=== PATIENT | female | born 1930 | race Hispanic/Latino ===

== ENCOUNTER 2017-08-26 08:51 | Emergency (ER) | payer MEDICARE ==
[2017-08-26 08:57] VITALS: BP 139/79
--- NOTE | 2017-08-26 09:25 | XRay Report ---
Right foot 3 views: History: Follow, right foot pain and swelling. Findings: There is nondisplaced fracture noted of the base of the fifth metatarsal. Generalized osteopenia. Impression: Nondisplaced fracture base of fifth metatarsal.
--- NOTE | 2017-08-26 09:45 | Emergency Department Report ---
ED Lower Extremity HPI - General Chief Complaint: Fall Stated Complaint: RT FOOT PAIN Time Seen by Provider: 08/26/17 09:25 Source: patient, family Mode of arrival: Ambulatory Limitations: No Limitations - History of Present Illness Initial Comments: 2 d ago got up to get remote to tv and fell. co r foot pain otherwise no injury she said her foot was asleep n/v intact good pulses rapid cap refill r lat foot red xray noted discussed w pt and family ortho shoe nsaids fu with ortho to ensure healing vimal MENENDEZ Complaint: fall, other (foot r lat) -: Sudden, days(s) (2) Injury: Foot: Right Type of Injury: other (fall mechanical) Place: home Severity: mild Improves With: nothing Worsens With: nothing Context: fall Associated Symptoms: other (red). denies: snap/pop sensation, swelling, numbness, tingling, unable to bear weight, able to partially bear weight, ambulatory - Related Data Allergies Allergy/AdvReac Type Severity Reaction Status Date / Time No Known Allergies Allergy Unverified 08/26/17 08:52 ED Review of Systems ROS: Stated complaint: RT FOOT PAIN Other details as noted in HPI Comment: All other systems reviewed and negative Musculoskeletal: other (r foot pain) ED Past Medical Hx - Past Medical History Previous Medical History?: Yes Hx Seizures: Yes - Surgical History Past Surgical History?: Yes Hx Appendectomy: Yes - Social History Smoking Status: Never Smoker Substance Use Type: Prescribed ED Physical Exam - General Limitations: No Limitations General appearance: alert, in no apparent distress - Head Head exam: Present: atraumatic - Eye Eye exam: Present: PERRL - ENT ENT exam: Present: mucous membranes moist - Neck Neck exam: Present: normal inspection - Respiratory Respiratory exam: Present: normal lung sounds bilaterally - Cardiovascular Cardiovascular Exam: Present: regular rate - Expanded Lower Extremity Exam Right Knee exam: Present: normal inspection Lower Leg exam: Present: normal inspection Foot/Toe exam: Present: erythema 1 - red - Back Exam Back exam: Present: normal inspection - Neurological Exam Neurological exam: Present: alert, oriented X3, CN II-XII intact - Psychiatric Psychiatric exam: Present: normal affect, normal mood - Skin Skin exam: Present: warm, dry, intact ED Course Vital Signs 08/26/17 08:52 Temperature 97.4 F L Pulse Rate 77 Respiratory 18 Rate Blood Pressure 139/79 O2 Sat by Pulse 95 Oximetry - Reevaluation(s) Reevaluation #1: 08/26/17 09:49 nv intact good pulses no deformity red as indicated on diagram no ecchymosis on plavix did not hit head pt is clear of events also hx sz no sz this was purely mechanical images given to pt on old films. ice shoe dc home w dc poc ED Lower Extremity MDM - Radiology Data Radiology results: report reviewed, image reviewed - Medical Decision Making see note - Differential Diagnosis ro fx Critical care attestation.: If time is entered above; I have spent that time in minutes in the direct care of this critically ill patient, excluding procedure time. ED Disposition Clinical Impression: Metatarsal fracture Disposition: DC-01 TO HOME OR SELFCARE Is pt being admited?: No Does the pt Need Aspirin: No Condition: Stable Instructions: Toe Fracture (ED) Additional Instructions: rest ice elevate motrin or tylenol for pain per bottle instructions ortho shoe follow up with pcp or ortho to ensure healing Referrals: MALIK CONWAY MD [Staff Physician] - 3-5 Days ELIECER REAVES MD [Staff Physician] - 3-5 Days Time of Disposition: 09:43
== END 2017-08-26 10:50 | disposition home or self-care (01) ==
LOC: ED 08:51
DX: S92.354A Nondisplaced fracture of fifth metatarsal bone, right foot, initial encounter for closed fracture (principal); W19.XXXA Unspecified fall, initial encounter; Y93.89 Activity, other specified; Y99.8 Other external cause status; Y92.098 Other place in other non-institutional residence as the place of occurrence of the external cause
CPT/HCPCS: 99283